=== PATIENT | male | born 1950 | race Caucasian/White ===

== ENCOUNTER → 2021-03-22 | Day surgery (SDC) | payer MEDICARE, OTHER ==
[~2021-03-22] VITALS: Ht 182.9 cm; Wt 113.4 kg
[~2021-03-22] MED LIST: AMARYL1 MG PO; ASPIRIN CHEWABL81 MG PO; CLARITIN10 MG PO; ELIQUIS5 M1 PO; FENOFIBRATE160 MG PO; FLOMAX0.4 MG PO; JANUVIA100 MG PO; LEVAQUIN750 MG PO; LIPITOR80 MG PO; LISINOPRIL40 MG PO; METFORMIN HCL1000 MG PO; METFORMIN HCL500 MG PO; NORVASC2.5 MG PO; PREVACID30 M1 PO; TAMIFLU 75MG CA75 MG PO; TOPROL XL100 MG PO
[2021-03-22 08:22] LABS: HCT 44.1 % (42.0-52.0); HGB 15.5 g/dl (13.2-18.0); MCH 32.8 pg (25.0-31.0); MCHC 35.1 g/dL (32.0-36.0); MCV 93.4 fL (78.0-100.0); MPV 9.8 fL (6.0-9.5); RBC 4.72 M/uL (4.70-6.00); RDW 13.1 % (11.5-14.0); WBC 6.9 K/uL (4.0-10.5)
[2021-03-22 08:41] LABS: ALBUMIN 3.7 g/dL (3.4-5.0); BILIRUBIN - TOTAL 0.6 mg/dL (0.2-1.0); BUN/CREAT RATIO (CALC) 13.6 RATIO; CREATININE 1.18 mg/dL (0.67-1.17); GLOBULIN (CALCULATION) 3.4 g/dL; POTASSIUM 3.9 mmol/L (3.5-5.1); TOTAL PROTEIN 7.1 g/dL (6.4-8.2)
== END | disposition home or self-care (01) ==
LOC: FAS 07:21
PROVIDERS: Surgery
DX: Z12.11 Encounter for screening for malignant neoplasm of colon (principal); D12.3 Benign neoplasm of transverse colon; Z79.899 Other long term (current) drug therapy; Z91.041 Radiographic dye allergy status; Z88.0 Allergy status to penicillin; Z88.8 Allergy status to other drugs, medicaments and biological substances; E11.9 Type 2 diabetes mellitus without complications; I10 Essential (primary) hypertension; E78.00 Pure hypercholesterolemia, unspecified; Z79.84 Long term (current) use of oral hypoglycemic drugs
CPT/HCPCS: 36415; 80053; 82378; 88305; J2704; J7120

== ENCOUNTER 2021-07-10 19:36 | Emergency (ER) | payer MEDICARE, OTHER ==
[2021-07-10 21:30] LABS: BASOPHIL 0.5 % (0-2); EOSINOPHIL 0 % (0-7); HCT 44.4 % (42.0-52.0); HGB 15.8 g/dl (13.2-18.0); LYMPHOCYTE 2.8 % (15-48); MCHC 35.6 g/dL (32.0-36.0); MCV 92.7 fL (78.0-100.0); MONOCYTE 7.8 % (0-12); MPV 10.4 fL (6.0-9.5); NRBC 0; PLT 120 K/uL (150-400); RBC 4.79 M/uL (4.70-6.00); RDW 13.3 % (11.5-14.0); WBC 10.9 K/uL (4.0-10.5)
[2021-07-10 21:31] LABS: NEUTROPHIL 86.1 % (41-80)
[2021-07-10 21:46] LABS: BUN/CREAT RATIO (CALC) 12.3 RATIO; CREATININE 1.3 mg/dL (0.67-1.17); POTASSIUM 3.9 mmol/L (3.5-5.1)
[2021-07-10 21:53] LABS: LACTIC ACID 3.7 mmol/L (0.4-1.9)
[2021-07-10 23:05] LABS: BILIRUBIN 1+ mg/dL (NEGATIVE); BLOOD 3+ Ery/uL (NEGATIVE); CLARITY HAZY (CLEAR); COLOR ORANGE (YELLOW); GLUCOSE (U) 2+ mg/dL (NORMAL); LEUKOCYTES 1+ Leu/uL (NEGATIVE); NITRITE POSITIVE (NEGATIVE); PROTEIN 2+ mg/dL (NEGATIVE); SPECIFIC GRAVITY 1.025 (1.001-1.030)
[2021-07-10 23:11] LABS: BACTERIA 3+; URINARY WBC TNTC
[2021-07-11] MEDS ORDERED: NORCO 5-325 TA1 EACH PO (02:17)
[2021-07-11] MEDS ORDERED: CIPRO500 MG PO ×2 (02:17→10:12)
[2021-07-11] MEDS ORDERED: PYRIDIUM200 MG PO ×2 (02:25→10:13)
== END 2021-07-11 02:36 | disposition home or self-care (01) ==
LOC: FER 19:36
PROVIDERS: Emergency Medicine
DX: N30.00 Acute cystitis without hematuria (principal); N21.0 Calculus in bladder; E11.9 Type 2 diabetes mellitus without complications; I10 Essential (primary) hypertension; Z79.84 Long term (current) use of oral hypoglycemic drugs; Z79.82 Long term (current) use of aspirin; Z79.01 Long term (current) use of anticoagulants; Z79.899 Other long term (current) drug therapy; Z88.0 Allergy status to penicillin; Z91.041 Radiographic dye allergy status
CPT/HCPCS: 36415; 71046; 80048; 81001; 83605; 85025; 87040; 87088; 87186; J0696; J7030